=== PATIENT | female | born 1985 | race Hispanic/Latino ===

== ENCOUNTER 2018-03-15 20:35 | Emergency (ER) | payer OTHER, SELFPAY ==
[2018-03-15 20:48] VITALS: BP 128/81; PULSE 71; RESP 15; TEMP 36.8; O2SAT 100; BMI 31.9
--- NOTE | 2018-03-15 20:48 | ED.PREGNANCY ---
HPI - <Jazmine Atkins PA-C - Last Filed: 03/15/18 22:20> General Chief complaint: OB/Uterine Contractions Stated complaint: 10 WKS BLEEDING CRAMPING Time Seen by Provider: 03/15/18 20:48 Source: patient Mode of arrival: ambulatory Limitations: no limitations History of Present Illness HPI Narrative: This healthy 32-year-old female is 10 weeks with her 3rd . She states that for the last week or so she has had a little bit of mucus and vaginal blood after urinating. She states that today had increased bleeding (states that she is not needing to use a pad or a tampon, but will notice blood in her underwear when she uses the restroom ). She states that this has been stopping and starting, and when she does bleed she will have some mild pelvic cramping. She states that she has had nausea with her but no increased today, no vomiting. She denies any urinary frequency, urgency, or dysuria. She denies any flank pain or abdominal pain. She denies any fever. She denies any chest pain or dyspnea. She has not had any pain or swelling in her legs or other new complaints. She states that she did not have bleeding with her other pregnancies and is due to leave [facility] tomorrow for work so wanted to have this checked prior. Related Data Home Medications Medication Instructions Recorded Confirmed VIT #49/IRON FUM/FA (MINI 1 ea PO #0 07/01/16 TABLET) ferrous sulfate [Iron (ferrous 325 mg PO QDAY #0 08/10/16 sulfate)] Previous Rx's Medication Instructions Recorded Breast Pump - Double Electric ea #1 12/11/16 Allergies Allergy/AdvReac Type Severity Reaction Status Date / Time No Known Allergies Allergy Uncoded 07/24/17 12:41 Review of Systems <Jazmine Atkins PA-C - Last Filed: 03/15/18 22:20> Review of Systems All systems reviewed & are unremarkable except as noted in HPI and below Exam <Jazmine Atkins PA-C - Last Filed: 03/15/18 22:20> Narrative Exam Narrative: GENERAL APPEARANCE: Patient sitting comfortably, in no distress. HEENT: PERRL, EOMI, no scleral icterus NECK: Supple LUNGS: Clear to auscultation bilaterally. HEART: Rate and rhythm regular, normal S1 and S2, no S3 or S4. ABDOMEN: Soft, nontender, nondistended, bowel sounds present x 4 quadrants, no masses palpable, no CVAT EXTREMITIES: No edema, no calf tenderness DERMATOLOGIC: No jaundice or exanthem NEUROLOGIC: Alert and oriented with normal speech and coordination Initial Vital Signs Initial Vital Signs: Vital Signs Temperature 98.3 F 03/15/18 20:48 Pulse Rate 71 03/15/18 20:48 Respiratory Rate 15 03/15/18 20:48 Blood Pressure 128/81 03/15/18 20:48 Pulse Oximetry 100 03/15/18 20:48 <DO Juan Alberto Spencer Last Filed: 03/16/18 01:04> Initial Vital Signs Initial Vital Signs: Vital Signs Temperature 98.3 F 03/15/18 20:48 Pulse Rate 71 03/15/18 20:48 Respiratory Rate 15 03/15/18 20:48 Blood Pressure 128/81 03/15/18 20:48 Pulse Oximetry 100 03/15/18 20:48 Course <Jazmine Atkins PA-C - Last Filed: 03/15/18 22:20> Orders Ordered: ED Orders 03/15/18 20:57 US OB <= 14 weeks fetus Stat 03/15/18 21:05 HCG Quantitative Stat Vital Signs - 8 hr 03/15/18 20:48 03/15/18 22:22 Temperature 98.3 F Pulse Rate 71 77 Respiratory Rate 15 15 Blood Pressure 128/81 116/77 Pulse Oximetry 100 98 <DO Juan Alberto Spencer Last Filed: 03/16/18 01:04> Orders Ordered: ED Orders 03/15/18 20:57 US OB <= 14 weeks fetus Stat 03/15/18 21:05 HCG Quantitative Stat Vital Signs - 8 hr 03/15/18 20:48 03/15/18 22:22 Temperature 98.3 F Pulse Rate 71 77 Respiratory Rate 15 15 Blood Pressure 128/81 116/77 Pulse Oximetry 100 98 MDM - OB/Uterine Contractions <RAMILA Castañeda Last Filed: 03/15/18 22:20> Lab Data Attestation: I reviewed the patient's lab results. Lab Results 03/15/18 Range/Units 21:05 HCG, Quant 7468.6 mIU/mL Point of Care Testing Test Results Positive Urine Dip Bedside Urine Glucose Negative Bedside Urine Bilirubin - Negative Bedside Urine Ketone - Negative Urine Specific [place] 1.025 Bedside Urine Occult Blood +++ Bedside Urine pH 6.0 Bedside Urine Protein +/- 15 Bedside Urine Urobilinogen - Negative Bedside Urine Nitrite - Negative Bedside Urine Leukocytes - Negative Esterase Imaging Data : Radiologist's impression: [address] [address] Ultrasound Report Signed Patient: Yesenia Long KMR#: [id number] : 1985Acct:[id number] Age/Sex: 32 / FDate of Service: 03/15/18 Loc: ED Accession Number: [id number] Procedure: US OB <= 14 weeks fetus Ordering Provider: Jazmine Atkins P.A-C PROCEDURE: US OB <= 14 WEEKS FETUS INDICATIONS: 10 wks pG, spotting OUTSIDE/PRIOR DATING DATA: Last menstrual period (LMP): 12/28/17. LMP-based estimated date of delivery (ADRIANA): 10/04/18. First dating scan (date and location): . Estimated date of delivery (ADRIANA) from first dating scan: 10/30/18. TECHNIQUE: Real-time scanning was performed of the fetuses and maternal pelvic organs, with image documentation. Endovaginal scanning: Performed for better visualization of the fetuses and maternal adnexal structures. COMPARISON: None. FINDINGS: Embryo: [place]-rump length measures 1.2 cm corresponding to ultrasound estimated gestational age of 7 weeks 2 days. No cardiac motion identified. Measurement variability in dating: +/- 4 weeks by LMP, +/- 7 days by mean sac diameter (use before 6 weeks gestation if crown-rump length unable to be measured), +/- 5 days by crown-rump length (up to 8 weeks 6 days gestation), +/- 7 days by crown-rump length (up to 13 weeks 6 days gestation). Maternal organs: Small 2.2 cm corpus luteal cyst noted in the right adnexa. A left adnexa sonographically normal. Limited images through the kidneys demonstrate no hydronephrosis. IMPRESSION: Single intrauterine with estimated gestational age of 7 weeks 2 days. No cardiac motion identified compatible with demise. Dictated by: Bev Luis MD, PhD on 03/15/2018 at 21:48 Approved by: Bev Luis MD, PhD on 03/15/2018 at 21:50 <Bayron Jordan DO - Last Filed: 03/16/18 01:04> Lab Data Lab Results 03/15/18 Range/Units 21:05 HCG, Quant 7468.6 mIU/mL Point of Care Testing Test Results Positive Urine Dip Bedside Urine Glucose Negative Bedside Urine Bilirubin - Negative Bedside Urine Ketone - Negative Urine Specific [place] 1.025 Bedside Urine Occult Blood +++ Bedside Urine pH 6.0 Bedside Urine Protein +/- 15 Bedside Urine Urobilinogen - Negative Bedside Urine Nitrite - Negative Bedside Urine Leukocytes - Negative Esterase Discharge Plan Departure Patient Disposition: Home Clinical Impression: Bleeding in early , demise, less than 22 weeks Discharge Date/Time: 03/15/18 22:24 Interventions: ED Discharge Assessment Last Done: 03/15/18 22:22 Instructions: Dealing With Miscarriage, DI for Miscarriage Activity Restrictions/Additional Instructions: Your testing today showed that the fetus in your uterus is not living. The best estimation from this and your dating is that this happened 2-3 weeks ago, but that you have not started spotting until now. It is likely that you may develop heavier bleeding and pass this naturally (like a heavy period). please return as we talked about if you have any acutely worsening symptoms over the weekend. Otherwise, gentle activity is okay. You can take [id number] pain medicine such as ibuprofen as needed. Please call obstetrics at the [facility] on Saturday and let them know that you were seen in the emergency room and need follow up early next week. follow-up evaluation and testing will be needed to make sure that you have passed this. Please take the Ultrasound disc with you so that the home health rn will have it for comparison purposes if needed. Best wishes to you and your beautiful family Prescriptions: No Action VIT #49/IRON FUM/FA (MINI TABLET) 1 ea PO Qty: 0 RF: 0 ferrous sulfate [Iron (ferrous sulfate)] 325 MG tablet 325 mg PO QDAY Qty: 0 RF: 0 Breast Pump - Double Electric Qty: 1 RF: 0 Referrals: [facility] [employer] [employer] [facility] [Provider Group] <Bayron Jordan DO - Last Filed: 03/16/18 01:04> Cosign ED Attending Cosjulyature Attestation: I was immediately available in the department for consultation. Documentation has been reviewed. I agree with assessment and plan.
--- NOTE | 2018-03-15 20:57 | DI.US.S_ITS ---
PROCEDURE: US OB <= 14 WEEKS FETUS INDICATIONS: 10 wks pG, spotting OUTSIDE/PRIOR DATING DATA: Last menstrual period (LMP): 12/28/17. LMP-based estimated date of delivery (ADRIANA): 10/04/18. First dating scan (date and location): . Estimated date of delivery (ADRIANA) from first dating scan: 10/30/18. TECHNIQUE: Real-time scanning was performed of the fetuses and maternal pelvic organs, with image documentation. Endovaginal scanning: Performed for better visualization of the fetuses and maternal adnexal structures. COMPARISON: None. FINDINGS: Embryo: [place]-rump length measures 1.2 cm corresponding to ultrasound estimated gestational age of 7 weeks 2 days. No cardiac motion identified. Measurement variability in dating: +/- 4 weeks by LMP, +/- 7 days by mean sac diameter (use before 6 weeks gestation if crown-rump length unable to be measured), +/- 5 days by crown-rump length (up to 8 weeks 6 days gestation), +/- 7 days by crown-rump length (up to 13 weeks 6 days gestation). Maternal organs: Small 2.2 cm corpus luteal cyst noted in the right adnexa. A left adnexa sonographically normal. Limited images through the kidneys demonstrate no hydronephrosis. IMPRESSION: Single intrauterine with estimated gestational age of 7 weeks 2 days. No cardiac motion identified compatible with demise. Dictated by: Bev Luis MD, PhD on 03/15/2018 at 21:48 Approved by: Bev Luis MD, PhD on 03/15/2018 at 21:50
--- NOTE | 2018-03-15 21:08 | ED_ITS ---
HPI - <Jazmine Atkins PA-C - Last Filed: 03/15/18 22:20> General Chief complaint: OB/Uterine Contractions Stated complaint: 10 WKS BLEEDING CRAMPING Time Seen by Provider: 03/15/18 20:48 Source: patient Mode of arrival: ambulatory Limitations: no limitations History of Present Illness HPI Narrative: This healthy 32-year-old female is 10 weeks with her 3rd . She states that for the last week or so she has had a little bit of mucus and vaginal blood after urinating. She states that today had increased bleeding (states that she is not needing to use a pad or a tampon, but will notice blood in her underwear when she uses the restroom ). She states that this has been stopping and starting, and when she does bleed she will have some mild pelvic cramping. She states that she has had nausea with her but no increased today, no vomiting. She denies any urinary frequency, urgency, or dysuria. She denies any flank pain or abdominal pain. She denies any fever. She denies any chest pain or dyspnea. She has not had any pain or swelling in her legs or other new complaints. She states that she did not have bleeding with her other pregnancies and is due to leave [facility] tomorrow for work so wanted to have this checked prior. Related Data Home Medications Medication Instructions Recorded Confirmed VIT #49/IRON FUM/FA (MINI 1 ea PO #0 07/01/16 TABLET) ferrous sulfate [Iron (ferrous 325 mg PO QDAY #0 08/10/16 sulfate)] Previous Rx's Medication Instructions Recorded Breast Pump - Double Electric ea #1 12/11/16 Allergies Allergy/AdvReac Type Severity Reaction Status Date / Time No Known Allergies Allergy Uncoded 07/24/17 12:41 Review of Systems <Jazmine Atkins PA-C - Last Filed: 03/15/18 22:20> Review of Systems All systems reviewed & are unremarkable except as noted in HPI and below Exam <Jazmine Atkins PA-C - Last Filed: 03/15/18 22:20> Narrative Exam Narrative: GENERAL APPEARANCE: Patient sitting comfortably, in no distress. HEENT: PERRL, EOMI, no scleral icterus NECK: Supple LUNGS: Clear to auscultation bilaterally. HEART: Rate and rhythm regular, normal S1 and S2, no S3 or S4. ABDOMEN: Soft, nontender, nondistended, bowel sounds present x 4 quadrants, no masses palpable, no CVAT EXTREMITIES: No edema, no calf tenderness DERMATOLOGIC: No jaundice or exanthem NEUROLOGIC: Alert and oriented with normal speech and coordination Initial Vital Signs Initial Vital Signs: Vital Signs Temperature 98.3 F 03/15/18 20:48 Pulse Rate 71 03/15/18 20:48 Respiratory Rate 15 03/15/18 20:48 Blood Pressure 128/81 03/15/18 20:48 Pulse Oximetry 100 03/15/18 20:48 <DO Juan Alberto Spencer Last Filed: 03/16/18 01:04> Initial Vital Signs Initial Vital Signs: Vital Signs Temperature 98.3 F 03/15/18 20:48 Pulse Rate 71 03/15/18 20:48 Respiratory Rate 15 03/15/18 20:48 Blood Pressure 128/81 03/15/18 20:48 Pulse Oximetry 100 03/15/18 20:48 Course <Jazmine Atkins PA-C - Last Filed: 03/15/18 22:20> Orders Ordered: ED Orders 03/15/18 20:57 US OB <= 14 weeks fetus Stat 03/15/18 21:05 HCG Quantitative Stat Vital Signs - 8 hr 03/15/18 20:48 03/15/18 22:22 Temperature 98.3 F Pulse Rate 71 77 Respiratory Rate 15 15 Blood Pressure 128/81 116/77 Pulse Oximetry 100 98 <DO Juan Alberto Spencer Last Filed: 03/16/18 01:04> Orders Ordered: ED Orders 03/15/18 20:57 US OB <= 14 weeks fetus Stat 03/15/18 21:05 HCG Quantitative Stat Vital Signs - 8 hr 03/15/18 20:48 03/15/18 22:22 Temperature 98.3 F Pulse Rate 71 77 Respiratory Rate 15 15 Blood Pressure 128/81 116/77 Pulse Oximetry 100 98 MDM - OB/Uterine Contractions <RAMILA Castañeda Last Filed: 03/15/18 22:20> Lab Data Attestation: I reviewed the patient's lab results. Lab Results 03/15/18 Range/Units 21:05 HCG, Quant 7468.6 mIU/mL Point of Care Testing Test Results Positive Urine Dip Bedside Urine Glucose Negative Bedside Urine Bilirubin - Negative Bedside Urine Ketone - Negative Urine Specific [place] 1.025 Bedside Urine Occult Blood +++ Bedside Urine pH 6.0 Bedside Urine Protein +/- 15 Bedside Urine Urobilinogen - Negative Bedside Urine Nitrite - Negative Bedside Urine Leukocytes - Negative Esterase Imaging Data : Radiologist's impression: [address] [address] Ultrasound Report Signed Patient: Yesenia Long KMR#: [id number] : 1985Acct:[id number] Age/Sex: 32 / FDate of Service: 03/15/18 Loc: ED Accession Number: [id number] Procedure: US OB <= 14 weeks fetus Ordering Provider: Jazmine Atkins P.A-C PROCEDURE: US OB <= 14 WEEKS FETUS INDICATIONS: 10 wks pG, spotting OUTSIDE/PRIOR DATING DATA: Last menstrual period (LMP): 12/28/17. LMP-based estimated date of delivery (ADRIANA): 10/04/18. First dating scan (date and location): . Estimated date of delivery (ADRIANA) from first dating scan: 10/30/18. TECHNIQUE: Real-time scanning was performed of the fetuses and maternal pelvic organs, with image documentation. Endovaginal scanning: Performed for better visualization of the fetuses and maternal adnexal structures. COMPARISON: None. FINDINGS: Embryo: [place]-rump length measures 1.2 cm corresponding to ultrasound estimated gestational age of 7 weeks 2 days. No cardiac motion identified. Measurement variability in dating: +/- 4 weeks by LMP, +/- 7 days by mean sac diameter (use before 6 weeks gestation if crown-rump length unable to be measured), +/- 5 days by crown-rump length (up to 8 weeks 6 days gestation), +/- 7 days by crown-rump length (up to 13 weeks 6 days gestation). Maternal organs: Small 2.2 cm corpus luteal cyst noted in the right adnexa. A left adnexa sonographically normal. Limited images through the kidneys demonstrate no hydronephrosis. IMPRESSION: Single intrauterine with estimated gestational age of 7 weeks 2 days. No cardiac motion identified compatible with demise. Dictated by: Bev Luis MD, PhD on 03/15/2018 at 21:48 Approved by: Bev Luis MD, PhD on 03/15/2018 at 21:50 <Bayron Jordan DO - Last Filed: 03/16/18 01:04> Lab Data Lab Results 03/15/18 Range/Units 21:05 HCG, Quant 7468.6 mIU/mL Point of Care Testing Test Results Positive Urine Dip Bedside Urine Glucose Negative Bedside Urine Bilirubin - Negative Bedside Urine Ketone - Negative Urine Specific [place] 1.025 Bedside Urine Occult Blood +++ Bedside Urine pH 6.0 Bedside Urine Protein +/- 15 Bedside Urine Urobilinogen - Negative Bedside Urine Nitrite - Negative Bedside Urine Leukocytes - Negative Esterase Discharge Plan Departure Patient Disposition: Home Clinical Impression: Bleeding in early , demise, less than 22 weeks Discharge Date/Time: 03/15/18 22:24 Interventions: ED Discharge Assessment Last Done: 03/15/18 22:22 Instructions: Dealing With Miscarriage, DI for Miscarriage Activity Restrictions/Additional Instructions: Your testing today showed that the fetus in your uterus is not living. The best estimation from this and your dating is that this happened 2-3 weeks ago, but that you have not started spotting until now. It is likely that you may develop heavier bleeding and pass this naturally (like a heavy period). please return as we talked about if you have any acutely worsening symptoms over the weekend. Otherwise, gentle activity is okay. You can take [id number] pain medicine such as ibuprofen as needed. Please call obstetrics at the [facility] on Saturday and let them know that you were seen in the emergency room and need follow up early next week. follow-up evaluation and testing will be needed to make sure that you have passed this. Please take the Ultrasound disc with you so that the tactical debriefer officer will have it for comparison purposes if needed. Best wishes to you and your beautiful family Prescriptions: No Action VIT #49/IRON FUM/FA (MINI TABLET) 1 ea PO Qty: 0 RF: 0 ferrous sulfate [Iron (ferrous sulfate)] 325 MG tablet 325 mg PO QDAY Qty: 0 RF: 0 Breast Pump - Double Electric Qty: 1 RF: 0 Referrals: [facility] [Provider Group] <Bayron Jordan DO - Last Filed: 03/16/18 01:04> Cosign ED Attending Cosjulyature Attestation: I was immediately available in the department for consultation. Documentation has been reviewed. I agree with assessment and plan.
[2018-03-15 21:48] LABS: HCG Quantitative /Beta subunit 7468.6 mIU/mL
[2018-03-15 22:22] VITALS: BP 116/77; PULSE 77; RESP 15; O2SAT 98
== END 2018-03-15 22:24 | disposition home or self-care (01) ==
PROVIDERS: Emergency Provider Internal Medicine
DX: O02.1 Missed abortion (principal); Z3A.10 10 weeks gestation of pregnancy
CPT/HCPCS: 36415; 76801; 76817; 81003; 81025; 84702; 99282; 99284

== ENCOUNTER 2018-11-24 22:14 | Emergency (ER) | payer OTHER, SELFPAY ==
[2018-11-24 22:25] VITALS: BP 114/82; PULSE 73; RESP 16; TEMP 37.1; O2SAT 100; BMI 31.5
[2018-11-25] MEDS: LIDOCAINE PATCH 1 EACH ADH..PATCH TOP (00:45)
[2018-11-25] MEDS: KETOROLAC 60 MG/2 ML VIAL IM (00:45)
[2018-11-25] MEDS: CYCLOBENZAPRINE 10 MG PREPACK 1 BOTTLE MISC (00:45)
[2018-11-25] MEDS: ACETAMINOPHEN 325 MG TABLET 975 MG PO (00:45)
[2018-11-25 01:02] VITALS: BP 127/77; PULSE 60; RESP 16; TEMP 36.8; O2SAT 100
--- NOTE | 2018-11-25 07:29 | ED_ITS ---
HPI - Back Pain/Injury General Chief Complaint: Back Pain/Injury Stated Complaint: LOWER BACK PAIN Time Seen by Provider: 11/24/18 22:20 Source: patient and family Mode of arrival: ambulatory Limitations: no limitations History of Present Illness HPI Narrative: 33-year-old female nonsmoker presents with right lumbar pain without obvious injury. She denies any fever chills. She denies nausea, vomiting or diarrhea. She denies dysuria, frequency or urgency. She denies any trouble controlling bowel or bladder. She denies radiation of the pain. She has no numbness, tingling or weakness and denies any significant trauma. Her pain is worse with motion and improves with rest MD Complaint: back pain and back injury Onset (ago): hour(s) Duration: constant Similar Symptoms Previously: No Location: lumbar spine Severity: moderate Quality: sharp Radiation: none Relieving factors: immobilization Exacerbating factors: movement and walking Associated symptoms: denies other symptoms Related Data Home Medications Medication Instructions Recorded Confirmed VIT #49/IRON FUM/FA (MINI 1 ea PO #0 07/01/16 TABLET) ferrous sulfate [Iron (ferrous 325 mg PO QDAY #0 08/10/16 sulfate)] Previous Rx's Medication Instructions Recorded Breast Pump - Double Electric ea #1 12/11/16 cyclobenzaprine 10 mg PO TID PRN #14 tab 11/25/18 ketorolac 10 mg PO Q6H PRN #14 tab 11/25/18 Allergies Allergy/AdvReac Type Severity Reaction Status Date / Time No Known Allergies Allergy Uncoded 07/24/17 12:41 Review of Systems Constitutional Denies chills, Denies fever(s), Denies lethargy and Denies weakness Eyes Denies change in vision, Denies eye discharge, Denies irritation and Denies loss of vision ENT Ears, Nose, Mouth, and Throat: Denies change in voice, Denies neck pain and Denies sore throat Cardiovascular Denies chest pain, Denies irregular heart rhythm, Denies lightheadedness, Denies palpitations, Denies dyspnea, Denies dyspnea on exertion and Denies orthopnea Respiratory Denies cough, Denies dyspnea, Denies dyspnea on exertion and Denies wheezing Gastrointestinal Gastrointestinal: Denies abdominal pain, Denies change in bowel habits, Denies diarrhea, Denies nausea and Denies vomiting Genitourinary Denies hematuria, Denies flank pain, Denies urinary incontinence and Denies urinary urgency Musculoskeletal Reports back pain, Reports limited range of motion and Denies neck pain Integumentary/Breasts Denies pruritus, Denies erythema, Denies rash and Denies wounds Neurologic Denies confusion, Denies loss of vision and Denies weakness Psychiatric Denies anxiety, Denies confusion, Denies depression, Denies homicidal ideation and Denies suicidal ideation Endocrine Denies palpitations Hematologic/Lymphatic Denies easy bruising Allergic/Immunologic Denies wheezing PFSH Social History Smoking Status: Never smoker Social History Smoking Status: Never smoker Exam Narrative Exam Narrative: GEN: AOx3 and in mild distress EYES: Pupils are equal, round, and reactive to light and accommodation. Extraoccular muscles are intact bilaterally. There is no subconjunctival hemo rrhage or exudate. CHEST: Lungs are clear to auscultation bilaterally and free of wheezes, rales, or rhonchi. Heart rate is regular rhythm, there are no murmurs, clicks, rubs, or gallops. There is no chest wall tenderness. ABD: Abdomen is soft and nontender. There is no guarding or rebound. Bowel sounds are normal in all 4 quadrants. There is no mass or organomegaly. EXT: Full painless ROM of all extremities with no loss of sensation or strength. SKIN: Warm, pink, and dry. No erythema or rash BACK: rubber heel and sole press tender but free of any obvious external abnormalities. Patient exam notes decreased range of motion and muscle spasm, but no CVA tenderness, or vertebral point tenderness. There are no symptoms of cauda equina such as saddle anesthesia, and decreased reflexes, decreased sensation or strength. Initial Vital Signs Initial Vital Signs: Vital Signs Temperature 98.8 F 11/24/18 22:25 Pulse Rate 73 11/24/18 22:25 Respiratory Rate 16 11/24/18 22:25 Blood Pressure 114/82 11/24/18 22:25 Pulse Oximetry 100 11/24/18 22:25 Course Orders Ordered: Discontinued Medications Acetaminophen (Tylenol) 975 mg PO NOW ONE Stop: 11/24/18 23:50 Last Admin: 11/25/18 00:45 Dose: 975 mg Cyclobenzaprine HCl (Flexeril 10 Mg Prepack) 1 bottle [facility] ONE Stop: 11/25/18 00:21 Last Admin: 11/25/18 00:45 Dose: 1 bottle Ketorolac Tromethamine (Toradol) 60 mg IM NOW ONE Stop: 11/25/18 00:21 Last Admin: 11/25/18 00:45 Dose: 60 mg Lidocaine (Lidoderm) 1 each TOP NOW ONE Stop: 11/25/18 00:21 Last Admin: 11/25/18 00:45 Dose: 1 each Vital Signs - 8 hr 11/25/18 01:02 Temperature 98.3 F Pulse Rate 60 Respiratory Rate 16 Blood Pressure 127/77 Pulse Oximetry 100 MDM - Back Pain/Injury Lab Data Point of Care Testing Test Results Negative Urine Dip Bedside Urine Glucose Negative Bedside Urine Bilirubin - Negative Bedside Urine Ketone +/- 5 Urine Specific [place] 1.020 Bedside Urine Occult Blood - Negative Bedside Urine pH 6.0 Bedside Urine Protein - Negative Bedside Urine Urobilinogen - Negative Bedside Urine Nitrite - Negative Bedside Urine Leukocytes - Negative Esterase MDM Narrative Medical decision making narrative: Multiple etiologies of back pain considered including; Epidural abscess, cauda equina, mass occupying lesion, and other considered Patient's symptoms improved or duration of stay with above-stated therapies. Findings and discharge diagnosis discussed with patient/family followed by verbalization of understanding Return precautions discussed with patient/family whom verbalize understanding. Discharge Plan Departure Patient Disposition: Home Clinical Impression: Strain of lumbar region Qualifiers: Encounter type: initial encounter Qualified Code(s): S39.012A - Strain of muscle, fascia and tendon of lower back, initial encounter Discharge Date/Time: 11/25/18 01:04 Interventions: ED Discharge Assessment Last Done: 11/25/18 01:02 Instructions: DI for Back Spasm Activity Restrictions/Additional Instructions: *You have been diagnosed with [right lumbar pain] *What to do: *Take medications as directed *Follow up with your primary care provider in 2-3 days, call for an appointment. Let them know you were seen in the Emergency Department and that we ask that you be seen in follow up *Return to ER if you should have any new, worsening or concerning symptoms Prescriptions: New cyclobenzaprine 10 mg tablet 10 mg PO TID PRN (Reason: muscle spasm) Qty: 14 RF: 0 ketorolac 10 mg tablet 10 mg PO Q6H PRN (Reason: pain) Qty: 14 RF: 0 No Action VIT #49/IRON FUM/FA (MINI TABLET) 1 ea PO Qty: 0 RF: 0 ferrous sulfate [Iron (ferrous sulfate)] 325 MG tablet 325 mg PO QDAY Qty: 0 RF: 0 Breast Pump - Double Electric Qty: 1 RF: 0 Stand Alone Forms: Work Release Note
== END 2018-11-25 01:04 | disposition home or self-care (01) ==
PROVIDERS: Emergency Provider Emergency Medicine
DX: M54.5 Low back pain (principal)
CPT/HCPCS: 81003; 81025; 96372; 99282; 99283; J1885

== ENCOUNTER 2019-03-09 15:53 | Emergency (ER) | payer OTHER, SELFPAY ==
[2019-03-09 16:05] VITALS: BP 142/88; PULSE 94; RESP 18; TEMP 36.9; O2SAT 98; BMI 31.9
[2019-03-09 16:21] LABS: Influenza A and B by PCR Rapid Negative (Negative)
[2019-03-09 17:01] VITALS: PULSE 94; TEMP 39.1; O2SAT 99
--- NOTE | 2019-03-09 17:18 | ED_ITS ---
HPI - URI/Sore Throat <AMEE Mcmahon - Last Filed: 03/09/19 17:21> General Chief Complaint: Upper Respiratory Symptoms Stated Complaint: THROAT HURTS A LOT BODY ACHE Time Seen by Provider: 03/09/19 16:09 Source: patient Mode of arrival: Ambulatory Limitations: no limitations History of Present Illness HPI Narrative: The patient is a 33-year-old female nonsmoker denies any medical history presents with a chief complaint of sore throat muscle aches and chills since today. She states swelling feels like she is swallowing glass. She denies any cough or congestion. She denies any fever nausea vomiting or diarrhea. She has not used anything for comfort. Related Data Previous Rx's Medication Instructions Recorded amoxicillin 875 mg PO BID #20 tab 03/09/19 Allergies Allergy/AdvReac Type Severity Reaction Status Date / Time No Known Drug Allergies Allergy Verified 03/09/19 16:05 Review of Systems <AMEE Mcmahon - Last Filed: 03/09/19 17:21> Review of Systems Narrative: GENERAL: See HPI HEENT: See HPI RESPIRATORY: Denies dyspnea, cough, wheezing, hemoptysis, sputum. CARDIOVASCULAR: Denies chest pain, palpitations, orthopnea, edema, GASTROINTESTINAL: Denies nausea, vomiting, abdominal pain, diarrhea, constipation, melena. : Denies dysuria, frequency, incontinence, hematuria, urinary retention. MUSCULOSKELETAL: denies weakness, joint pain, or bony pain SKIN: Denies rash, skin lesions, or other NEUROLOGIC: Denies weakness, headache, numbness, change in speech, confusion, seizures, incoordination. PSYCHIATRIC: No concerning psychosocial issues. 12 point review of systems is negative except for those stated above Patient History <AMEE Mcmahon - Last Filed: 03/09/19 17:21> Social History Smoking Status: Never smoker Substance Use Type: does not use Exam <AMEE Mcmahon - Last Filed: 03/09/19 17:21> Narrative Exam Narrative: GENERAL: This is a well-nourished, well-developed patient, in no acute distress. HEAD: Atraumatic. Normocephalic. No temporal or scalp tenderness. EYES: Pupils equal round and reactive. Extraocular motions intact. No scleral icterus. No injection or drainage. ENT: Nose without bleeding, purulent drainage or septal hematoma. Throat witherythema, 2+ tonsillar hypertrophy and exudate. Uvula midline. Airway patent. NECK: Trachea midline. No JVD or lymphadenopathy. Supple, nontender, no meningeal signs. CARDIOVASCULAR: Regular rate and rhythm without murmurs, gallops, or rubs. RESPIRATORY: Clear to auscultation. Breath sounds equal bilaterally. No wheezes, rales, or rhonchi. No cough. No increased respiratory effort. No accessory muscle use. GASTROINTESTINAL: Abdomen soft, non-tender, nondistended. No hepato- splenomegaly, or palpable masses. No guarding. EXTREMITIES: No clubbing, cyanosis, or edema. No joint tenderness, effusion, or edema noted. BACK: Nontender without deformity or crepitance. No flank tenderness. NEURO: AOx3. SKIN: No rash or erythema visible skin Initial Vital Signs Initial Vital Signs: Vital Signs Temperature 98.4 F 03/09/19 16:05 Pulse Rate 94 H 03/09/19 16:05 Respiratory Rate 18 03/09/19 16:05 Blood Pressure 142/88 H 03/09/19 16:05 Pulse Oximetry 98 03/09/19 16:05 <Janet Royal MD - Last Filed: 03/09/19 18:28> Initial Vital Signs Initial Vital Signs: Vital Signs Temperature 98.4 F 03/09/19 16:05 Pulse Rate 94 H 03/09/19 16:05 Respiratory Rate 18 03/09/19 16:05 Blood Pressure 142/88 H 03/09/19 16:05 Pulse Oximetry 98 03/09/19 16:05 Course <AMEE Mcmahon - Last Filed: 03/09/19 17:21> Orders Ordered: ED Orders 03/09/19 16:00 Influenza A and B by PCR Rapid Stat Vital Signs Vital signs: Vital Signs - 8 hr 03/09/19 16:05 03/09/19 17:01 Temperature 98.4 F 102.4 F H Pulse Rate 94 H 94 H Respiratory Rate 18 Blood Pressure 142/88 H Pulse Oximetry 98 99 <Janet Royal MD - Last Filed: 03/09/19 18:28> Orders Ordered: ED Orders 03/09/19 16:00 Influenza A and B by PCR Rapid Stat Vital Signs Vital signs: Vital Signs - 8 hr 03/09/19 16:05 03/09/19 17:01 Temperature 98.4 F 102.4 F H Pulse Rate 94 H 94 H Respiratory Rate 18 Blood Pressure 142/88 H Pulse Oximetry 98 99 MDM - URI/Sore Throat <AMEE Mcmahon - Last Filed: 03/09/19 17:21> Lab Data Labs: Lab Results 03/09/19 Range/Units 16:00 Influenza A & B (PCR) Negative (Negative) Point of Care Testing Rapid Strep A Positive MDM Narrative Medical decision making narrative: The patient is a 33-year-old female who presents with a chief complaint of fevers, sore throat muscle aches and chills. Fluids negative, strep is positive. I will initiate treatment with amoxicillin eight hundred seventy-five b.i.d. encouraged follow-up with primary care provider. Discussed at length coming back to emergency department for any acute concerns. Patient states understanding of return precautions as well as follow- up care has no questions or concerns upon discharge. <Janet Royal MD - Last Filed: 03/09/19 18:28> Lab Data Labs: Lab Results 03/09/19 Range/Units 16:00 Influenza A & B (PCR) Negative (Negative) Point of Care Testing Rapid Strep A Positive Discharge Plan Departure Patient Disposition: Home Clinical Impression: Strep throat Discharge Date/Time: 03/09/19 17:03 Instructions: Strep Throat (Alternative Therapy), DI for Strep Throat Activity Restrictions/Additional Instructions: I have given you a prescription for an antibiotic. This was sent to [facility]. Please use [id number] medications as needed and able for fever, muscle aches chills I have given you a work Note for few days. Please rest and push fluids. Please follow up with her primary care provider. Please come back to emergency department for any acute concerns such as difficulty breathe Prescriptions: New amoxicillin 875 mg tablet 875 mg PO BID Qty: 20 RF: 0 Referrals: [facility] [Provider Group] Stand Alone Forms: Work Release Note
== END 2019-03-09 17:03 | disposition home or self-care (01) ==
PROVIDERS: Emergency Medicine; Emergency Provider Nurse Practitioner Family
DX: J02.0 Streptococcal pharyngitis (principal)
CPT/HCPCS: 87502; 87880; 99282

== ENCOUNTER 2019-04-02 07:54 | Emergency (ER) | payer OTHER, SELFPAY ==
[2019-04-02 08:01] VITALS: BP 127/84; PULSE 68; RESP 15; TEMP 36.3; O2SAT 100; BMI 32.8
--- NOTE | 2019-04-02 08:35 | ED_ITS ---
HPI - Female Genitourinary General Chief complaint: Urogenital-Female Stated complaint: uterus pain Time Seen by Provider: 04/02/19 08:02 Source: patient Mode of arrival: Ambulatory Limitations: no limitations History of Present Illness HPI Narrative: Patient comes emergency department complaining of vaginal bleeding 2 weeks after her last period. She states that she has been feeling otherwise fine, but that she began to have cramping yesterday and overnight, noticed that she had spotted on her underwear. She states when she got up and urinated, there was blood that had dripped in the toilet. Patient states the bleeding is not like a full period but that she has never been irregular before or had bleeding in between her periods of concern. The patient states she is not known to be . Her last period was of normal length and heaviness, and occurred just under 3 weeks ago. The patient states that it started a few days late, but that she took a test at the time and this was negative. She is not on hormonal control. She is otherwise healthy. She states she has been having some diarrhea for the last couple of days and has also been cramping quite strongly with that. She denies fevers or chills. No nausea vomiting. No other complaints at this time. Related Data Previous Rx's Medication Instructions Recorded hydrocodone-acetaminophen 1 tab PO Q6H PRN #10 tab 04/02/19 Allergies Allergy/AdvReac Type Severity Reaction Status Date / Time No Known Drug Allergies Allergy Verified 04/02/19 08:01 Review of Systems Constitutional Constitutional: Denies chills, Denies fatigue, Denies fever(s), Denies frequent falls, Denies lethargy and Denies weakness Eyes Eyes: Denies change in vision, Denies eye discharge, Denies irritation and Denies loss of vision ENT Ears, Nose, Mouth, and Throat: Denies change in voice, Denies dizziness, Denies neck pain, Denies sore throat and Denies throat swelling Cardiovascular Cardiovascular: Denies chest pain, Denies irregular heart rhythm, Denies lightheadedness, Denies palpitations, Denies dyspnea, Denies dyspnea on exertion and Denies orthopnea Respiratory Respiratory: Denies cough, Denies dyspnea, Denies dyspnea on exertion and Denies wheezing Gastrointestinal Gastrointestinal: Denies abdominal pain, Denies change in bowel habits, Reports diarrhea, Denies nausea and Denies vomiting Genitourinary Genitourinary: Denies hematuria, Denies flank pain, Denies urinary incontinence and Denies urinary urgency Comments: Vaginal bleeding Musculoskeletal Musculoskeletal: Denies back pain, Denies muscle weakness, Denies neck pain, Denies numbness and Denies tingling Integumentary/Breasts Skin/Breast: Denies pruritus, Denies erythema, Denies rash and Denies wounds Neurologic Neurologic: Denies behavioral changes, Denies confusion, Denies dizziness, Denies frequent falls, Denies loss of vision, Denies numbness, Denies tingling and Denies weakness Psychiatric Psychiatric: Denies anxiety, Denies behavioral changes, Denies confusion, Denies depression, Denies homicidal ideation and Denies suicidal ideation Endocrine Endocrine: Denies fatigue, Denies flushing and Denies palpitations Hematologic/Lymphatic Hematologic/Lymphatic: Denies easy bruising Allergic/Immunologic Allergic/Immunologic: Denies urticaria, Denies throat swelling and Denies wheezing Patient History Medical History Healthy adult (Acute) Substance Use Type: does not use Exam Initial Vital Signs Initial Vital Signs: Vital Signs Temperature 97.3 F L 04/02/19 08:01 Pulse Rate 68 04/02/19 08:01 Respiratory Rate 15 04/02/19 08:01 Blood Pressure 127/84 04/02/19 08:01 Pulse Oximetry 100 04/02/19 08:01 Const General: cooperative and well developed Nutritional Appearance: well nourished Orientation: alert, awake, oriented x3 and not confused [facility] Head: normocephalic and atraumatic Ears: external ears normal Nose: external nose normal and No nasal discharge Face and sinus: face symmetric and No dry mucous membranes Mouth: oral mucosae normal and moist mucous membranes Teeth and gingiva: dentition normal Eyes General: appearance normal, both eyes and all related structures Eyelids: eyelids normal Conjunctivae: conjunctivae normal Sclera: sclerae normal Pupils: PERRL EOM: EOM intact bilaterally Neck Neck: normal visual inspection, trachea midline, No lymphadenopathy, No midline deformity and No JVD Lymphatic: No lymphedema Chest Chest: normal inspection of the chest Resp Effort & Inspection: normal respiratory effort, able to speak in complete sentences, no respiratory distress and no use of accessory muscles Auscultation: clear to auscultation bilaterally, no rales, no rhonchi and no wheezes Cardio Rate: regular rate Rhythm: regular rhythm Heart Sounds: no click, no gallops, no murmurs and no rubs Pulses: normal peripheral pulses GI Inspection: non-distended Palpation: soft, no hepatosplenomegaly, No guarding, No pulsatile mass and No tender Auscultation: normal bowel sounds Back/Spine/Pelvis Back: No CVA tenderness Cervical Spine: cervical ROM normal and No pain with cervical ROM Thoracic/Lumbar Spine: thoracic and lumbar spine normal to inspection Skin General: no rashes or lesions noted, No jaundice and No petechiae Neuro General: alert, oriented x3, gait normal and no focal motor deficits Speech: speech normal Extrem General: full ROM, no clubbing, cyanosis or edema, no pedal edema and no calf tenderness Psych Appearance: well kempt Mental Status: mental status grossly normal Attitude: cooperative Thought Content: normal and suicidality Judgment: judgment good Course Course Course Narrative: Patient was worked up with urinalysis, ultrasound, and preg fabián test. Ultrasound showed a right ovarian cystic structure which appeared to be a hemorrhagic cyst and no sign of in the uterus. Urine test was positive, so this was followed by a quantitative hCG, which was found to be 285. I discussed the findings with the patient. She verified that she had a late, but normal period otherwise, that began around the 15 of March. Given the low hCG and the timeline, especially in consideration of the negative test at the time of the patient's last period, the patient most likely has a very early that has been found incidentally. There is no sign with ectopic or intrauterine at this time, which is to be expected with the early nature of . However, I've discussed with the patient that while the bleeding may be due to a ruptured and hemorrhagic ovarian cyst, that at this point, an ectopic or an impending miscarriage cannot be ruled out. As such, I have discussed with the patient that is very important for her [place]. [place]up should be within the next several days, and certainly before [place]. I've discussed with her that at that time, she needs to have a repeat HCG performed to be sure that her levels are rising appropriately. We've discussed that if she develops severe pain and/or heavy bleeding, or if maday martinez experiences syncope or near syncope, she should return to the emergency department immediately. Orders Ordered: Discontinued Medications Ketorolac Tromethamine (Toradol) 30 mg IV NOW ONE Stop: 04/02/19 08:38 Last Admin: 04/02/19 08:44 Dose: 30 mg Documented by: SCANAPO Vital Signs Vital signs: Vital Signs - 8 hr 04/02/19 08:01 Temperature 97.3 F L Pulse Rate 68 Respiratory Rate 15 Blood Pressure 127/84 Pulse Oximetry 100 MDM - Female Genitourinary Medical Records Attestation: I reviewed the patient's medical records. Lab Data Attestation: I reviewed the patient's lab results. Labs: Lab Results 04/02/19 04/02/19 04/02/19 Range/Units 08:30 08:45 08:45 HCG, Quant 285.47 mIU/mL Urine Color Yellow Urine Appearance Sl cloudy Urine pH 7.0 (4.5-8.0) Ur Specific [place] <=1.005 (1.000-1.035) Urine Protein Negative (Negative) Urine Glucose (UA) Negative (Negative) g/dL Urine Ketones Negative (NEGATIVE) Urine Occult Blood 3+ H (Negative) Urine Nitrate Negative (Negative) Urine Bilirubin Negative (NEGATIVE) Urine Urobilinogen 0.2 (0.2) E.U./dL Ur Leukocyte Esterase Negative (NEGATIVE) Urine RBC 10-30/hpf H (0-5/HPF) Urine WBC None seen (0-5/HPF) Ur Squamous Epith Cells 0-1 /hpf (0-5/HPF) Urine Bacteria None seen (None) Ur Culture Indicated? Cult not indicated Urine Test Positive H (Negative) Imaging Data Pelvic ultrasound: Radiologist's impression: PROCEDURE: US PELVIC COMPLETE INDICATIONS: BLEEDING, PAIN TECHNIQUE: Real-time scanning was performed of the pelvic organs, with image documentation. Additional endovaginal scanning was necessary due to incomplete visualization of the adnexal and endometrial structures by transabdominal scanning. COMPARISON: None. FINDINGS: Transabdominal scanning: Limited scanning through the kidneys shows no hydronephrosis. There is a estimated 44 cc of echogenic free fluid within the posterior deep cul-de-sac, potentially representing hemorrhagic contents. Endovaginal scanning: Uterus: Uterus is normal in size at 4.1 x 4.8 x 8.0 cm. The endometrium measures 10.0 mm in combined thickness. Ovaries: The right ovary measures 3.3 x 4.2 x 4.3 cm and contains a complex structure possibly a hemorrhagic ovarian cyst measuring up to 2.0 x 3.0 x 2.7 cm. The appearance also could be produced by a partially ruptured heterogeneous hemorrhagic ovarian cyst. The left ovary appears normal measuring 2.0 x 2.5 x 2.9 cm. IMPRESSION: Free fluid deep within the pelvis at the posterior midline is echogenic, and the setting of acute onset of pelvic pain this may represent evidence of a ruptured hemorrhagic ovarian cyst. There is a echogenic complex structure at the right ovary measuring up to 3.0 cm as a potential manifestation of a ruptured hemorrhagic ovarian cyst. The quantity of free fluid in the pelvis is relatively small and estimated to be approximately 44 cc. Followup pelvic ultrasound in 6-8 weeks is recommended to confirm resolution of the complex structure in the right ovary. Alternatively, depending on clinical status, gynecological consultation and intervention may be warranted at this time. Dictated by: Javier Gregorio M.D. on 04/02/2019 at 9:29 Approved by: Javier Gregorio M.D. on 04/02/2019 at 10:00 Discharge Plan Departure Patient Disposition: Home Clinical Impression: Ruptured ovarian cyst, , spontaneous threatened Qualifiers: Weeks of gestation: less than 8 weeks Qualified Code(s): Z3A.01 - Less than 8 weeks gestation of Discharge Date/Time: 04/02/19 11:29 Instructions: DI for Threatened , DI for Ovarian Cyst Activity Restrictions/Additional Instructions: Your test came back positive. Your hormones are still fairly low, which indicates that most likely, you are very early in the course of . There is no evidence of a yet in your uterus, although this would not be expected to be seen at this point in time. You have a complex cyst on your right ovary which appears to have at least partially ruptured, and this may be the reason for the bloody discharge from your vagina. This does not appear to be an ectopic at this time. However, it is also possible that your in the early stages of a miscarriage. You will need to follow up with your primary doctor or road passenger firer to have your hormones rechecked in the next several days, most likely on Saturday. You will also need a repeat ultrasound in the next 1-2 weeks. Please call your primary doctor and your Ob right away to get set up for this. If your pain becomes more severe and your bleeding becomes very heavy, please return to the emergency department for reevaluation. Prescriptions: New hydrocodone-acetaminophen 5-325 mg tablet 1 tab PO Q6H PRN (Reason: pain) Qty: 10 RF: 0
--- NOTE | 2019-04-02 08:38 | DI.US.S_ITS ---
PROCEDURE: US PELVIC COMPLETE INDICATIONS: BLEEDING, PAIN TECHNIQUE: Real-time scanning was performed of the pelvic organs, with image documentation. Additional endovaginal scanning was necessary due to incomplete visualization of the adnexal and endometrial structures by transabdominal scanning. COMPARISON: None. FINDINGS: Transabdominal scanning: Limited scanning through the kidneys shows no hydronephrosis. There is a estimated 44 cc of echogenic free fluid within the posterior deep cul-de-sac, potentially representing hemorrhagic contents. Endovaginal scanning: Uterus: Uterus is normal in size at 4.1 x 4.8 x 8.0 cm. The endometrium measures 10.0 mm in combined thickness. Ovaries: The right ovary measures 3.3 x 4.2 x 4.3 cm and contains a complex structure possibly a hemorrhagic ovarian cyst measuring up to 2.0 x 3.0 x 2.7 cm. The appearance also could be produced by a partially ruptured heterogeneous hemorrhagic ovarian cyst. The left ovary appears normal measuring 2.0 x 2.5 x 2.9 cm. IMPRESSION: Free fluid deep within the pelvis at the posterior midline is echogenic, and the setting of acute onset of pelvic pain this may represent evidence of a ruptured hemorrhagic ovarian cyst. There is a echogenic complex structure at the right ovary measuring up to 3.0 cm as a potential manifestation of a ruptured hemorrhagic ovarian cyst. The quantity of free fluid in the pelvis is relatively small and estimated to be approximately 44 cc. Followup pelvic ultrasound in 6-8 weeks is recommended to confirm resolution of the complex structure in the right ovary. Alternatively, depending on clinical status, gynecological consultation and intervention may be warranted at this time. Dictated by: Javier Gregorio M.D. on 04/02/2019 at 9:29 Approved by: Javier Gregorio M.D. on 04/02/2019 at 10:00
[2019-04-02] MEDS: KETOROLAC 60 MG/2 ML VIAL 30 MG IV (08:44)
[2019-04-02 08:50] LABS: Bacteria Urine None Seen; WBC Urine None Seen (0-5/HPF)
[2019-04-02 08:53] LABS: Appearance Urine UA SL CLOUDY; Bilirubin Urine UA NEGATIVE (NEGATIVE); Color Urine UA YELLOW; Glucose Urine UA NEGATIVE (Negative); Ketones Urine UA NEGATIVE (NEGATIVE); Leukocyte Esterase Urine UA NEGATIVE (NEGATIVE); Nitrite Urine UA NEGATIVE (Negative); Occult Blood Urine UA 3+ (Negative); Protein Urine UA NEGATIVE (Negative); Specific Gravity Urine UA <=1.005 (1.000-1.035); Urobilinogen Urine UA 0.2 E.U./dL (0.2)
[2019-04-02 08:54] LABS: Pregnancy Test Urine Positive (Negative)
[2019-04-02 08:59] LABS: Culture Indicated Urine Cult Not Indicated; RBC Urine 10-30/HPF (0-5/HPF); Squamous Epithelial Cell Urine 0-1 /HPF (0-5/HPF)
[2019-04-02 09:46] LABS: HCG Quantitative /Beta subunit 285.47 mIU/mL
[2019-04-02 11:29] VITALS: BP 117/77; PULSE 62; RESP 16; O2SAT 100
== END 2019-04-02 11:29 | disposition home or self-care (01) ==
PROVIDERS: Emergency Provider Emergency Medicine
DX: N83.209 Unspecified ovarian cyst, unspecified side (principal); O20.0 Threatened abortion; Z3A.01 Less than 8 weeks gestation of pregnancy
CPT/HCPCS: 36415; 76830; 76856; 81001; 81025; 84702; 96374; 99284; J1885